=== PATIENT | female | born 1980 | race Caucasian/White ===

== ENCOUNTER 2017-08-24 12:56 | Day surgery (SDC) | payer BC ==
[~2017-08-24 12:56] MED LIST: DOXY1CAP91 PO; EZET10 PO; LANTUS2P SQ; METF1000 PO; MULT-6 PO; NOVOLOGP2 SQ; PROT40TA PO; VITA10003 PO; VITA60003 PO
[2017-08-24 13:22] VITALS: BP 138/73; PULSE 84; RESP 20; TEMP 98.2; O2SAT 95
[2017-08-24] MEDS ORDERED: ONETAB22 PO (13:28)
[2017-08-24] MEDS ORDERED: EMPA1TAB PO (13:28)
[2017-08-24] MEDS ORDERED: D31000CA3 (13:28)
--- NOTE | 2017-08-24 15:15 | RADRPT ---
EXAM DATE/TIME: 08/24/2017 14:54 [place] COMPARISON: No previous studies available for comparison. INDICATIONS : Patient presents with urinary tract infection in need of peripherally inserted central venous cathete r placement. MEDICAL HISTORY : Diabetes mellitus Hyperlipidemia Leukemia Skin cancer SURGICAL HISTORY : Cholecystectomy Skin cancer removal ENCOUNTER: Initial ACUITY: 2 weeks PAIN SCORE: 0/10 LOCATION: N/A FLUORO TIME: 0.2 minutes IMAGE SERIES: ACCESS: Right basilic vein DEVICE(S): 1.) 4 Swedish single lumen 46 cm Xcela Power PICC PROCEDURE : 1. Ultrasound guidance for venous catheterization. 2. Fluoroscopic guidance. 3. Ultrasound & fluoroscopic guided central venous Power PICC line placement. The risks, benefits and alternatives to the procedure were explained and verbal and written consent w as obtained. The site was prepped in sterile fashion. Full sterile technique was used, including ca p, mask, sterile gloves and gown and a large sterile sheet. Hand hygiene and 2% chlorhexidine prep w as utilized per protocol for cutaneous antisepsis with appropriate dry time for site. Sterile gel a nd sterile probe cover were utilized for ultrasound guidance. The skin and subcutaneous tissues wer e infiltrated with local anesthetic solution. Under direct ultrasound guidance, a suitable vein was accessed and a measuring guidewire was introduc ed and positioned in the central venous system. The ultrasound images depicting access guidance were saved and stored to PACS for permanent record. A Power Injectable PICC line was cut to prescribed length and introduced, positioned with tip at the cavoatrial junction level. The line was flushed and secured per protocol. CONCLUSION: 1. Uncomplicated central venous Power PICC line placement. 2. The PICC line can be used immediately. Jessee Hines MD on August 24, 2017 at 15:12 Board Certified Radiologist. This report was verified electronically.
--- NOTE | 2017-08-24 15:49 | PD.RAD ---
Radiology Post PICC Prog Note Pre Procedure Diagnosis: (1) Cholecystitis, acute Post Procedure Diagnosis: (1) Cholecystitis, acute Procedure: Left PICC line placement Procedure Date: Aug 24, 2017 Supervising Radiologist Jessee Hines Proceduralist/Assist: Addis Zelaya RT(R)() Device Side: Left Macedonian: 4 single lumen cm: 46 Catheter: Power PICC Plan of Activity Patient to Unit: ROPU Patient Condition: Good PICC line can be used immediately Jessee Hines MD Aug 24, 2017 15:49
[2017-08-24] MEDS ORDERED: SODIUM CHLORIDE 0.9% FLUSH 10 ML FLUSH IVF PRN ×2 (16:00)
[2017-08-25] MEDS ORDERED: SODIUM CHLORIDE 0.9% FLUSH 10 ML FLUSH IVF SCH (09:00)
[2017-08-25] MEDS ORDERED: NORC5TAB PO (12:34)
[2017-08-25] MEDS ORDERED: INVA1INJ IV (12:34)
== END 2017-08-24 15:15 | disposition home or self-care (01) ==
LOC: HROP 12:56 → HRIP 12:58 → HROP 15:15
PROVIDERS: ATTEND Obstetrics & Gynecology
DX: N39.0 Urinary tract infection, site not specified (principal); E11.9 Type 2 diabetes mellitus without complications; E78.5 Hyperlipidemia, unspecified; Z79.4 Long term (current) use of insulin
CPT/HCPCS: 36569; 76937; 77001; C1751; J1642